=== PATIENT | male | born 1955 | race Caucasian/White ===

== ENCOUNTER 2017-02-20 15:36 | Emergency (ER) | payer OTHER ==
[~2017-02-20] VITALS: Ht 172.7 cm; Wt 73.0 kg
[2017-02-20 15:38] VITALS: Ht 172.7 cm; Wt 73.0 kg
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
== END 2017-02-20 17:14 | disposition home or self-care (01) ==
LOC: FTE 15:36
DX: M54.2 Cervicalgia (principal); F17.210 Nicotine dependence, cigarettes, uncomplicated; R51 Headache; Z04.1 Encounter for examination and observation following transport accident
CPT/HCPCS: 70450; 72125